=== PATIENT | male | born 1970 | race Two or more races ===

== ENCOUNTER 2019-05-25 00:13 | Emergency (ER) | payer SELFPAY, MEDICAID ==
[2019-05-25] MEDS: IBUPROFEN 800 MG TAB PO (00:40)
== END 2019-05-25 02:03 | disposition home or self-care (01) ==
LOC: FTE 00:13
DX: S89.91XA Unspecified injury of right lower leg, initial encounter (principal); X50.1XXA Overexertion from prolonged static or awkward postures, initial encounter; Y92.810 Car as the place of occurrence of the external cause
CPT/HCPCS: 29505; 73562; 99283-25